=== PATIENT | female | born 1950 | race African-American/Black ===

== ENCOUNTER 2019-01-16 12:26 | Emergency (ER) | payer OTHER ==
[~2019-01-16] VITALS: Ht 152.4 cm; Wt 44.5 kg
[2019-01-16 12:58] LABS: ABSOLUTE NEUTROPHILS 5.1 thou/uL (1.4-8.2); BASOPHILS 0.9 % (0.0-2.0); HEMATOCRIT 34.8 % (37.0-47.0); HEMOGLOBIN 11.8 gm/dL (12.0-15.0); LYMPHOCYTES 30.9 % (24.0-44.0); MCH 32.1 pg (26.0-34.0); MCHC 33.9 g/dL (28.0-37.0); MCV 94.6 fL (80.0-100.0); MONOCYTES 4.4 % (1.0-8.0); PLATELET COUNT 233 thou/uL (150-400); POLYS 61.8 % (36.0-66.0); RBC 3.67 mil/uL (4.20-5.00); WBC 8.2 thou/uL (4.0-11.0)
[2019-01-16 13:01] LABS: URINE BILIRUBIN NEGATIVE (Negative); URINE BLOOD TRACE (Negative); URINE CLARITY CLOUDY; URINE COLOR YELLOW; URINE GLUCOSE-RANDOM* NEGATIVE (Negative); URINE KETONES 3+ (Negative); URINE LEUKOCYTES-REFLEX NEGATIVE (Negative); URINE NITRITE-REFLEX NEGATIVE (Negative); URINE PROTEIN (DIPSTICK) NEGATIVE (Negative); URINE UROBILINOGEN 0.2 E.U./dl (0.2-1.0)
[2019-01-16 13:17] LABS: ANION GAP 12 mmol/L (7-16); BUN 13 mg/dL (7-18); CALCIUM 10.1 mg/dL (8.5-10.1); CHLORIDE 103 mmol/L (98-107); CO2 26 mmol/L (21-32); CREATININE 0.6 mg/dL (0.6-1.0); GLUCOSE 92 mg/dL (74-106); POTASSIUM 3.5 mmol/L (3.5-5.1); SODIUM 141 mmol/L (136-145)
[2019-01-16 13:21] LABS: ALBUMIN 3.9 g/dL (3.4-5.0); LIPASE 131 U/L (73-393); SGOT 17 U/L (15-37); SGPT 19 U/L (30-65); TOTAL BILIRUBIN 0.5 mg/dL (<0.1-1.0); TOTAL PROTEIN 7.7 g/dL (6.4-8.2); TROPONIN-I <0.06 ng/mL (<0.06)
[2019-01-16 13:26] LABS: CASTS None Seen /LPF (None Seen); SQUAMOUS 4-10 Moderate /LPF (0-3); URINE WBC-REFLEX 0-5 Rare /HPF (0-5)
[2019-01-16 13:28] LABS: AMORPHOUS PHOSPHATES Many /LPF (None Seen); CRYSTALS None Seen /LPF (None Seen); URINE RBC 0-2 Rare /HPF (0-2)
[2019-01-16 15:02] VITALS: BP 119/65
--- NOTE | 2019-01-17 08:12 | EKG ---
[place] [address] [facility] [place] [address] ELECTROCARDIOGRAM REPORT Name: LUCAS ADAMES Room #: DEP ALDAIR Dumas#: [id number] ������������������ Admission: 01/16/19 ������������������ Attend Phys: Discharge: 01/16/19 ������������������ Date of : 54 Report #: [id number] ����������������������������������������������������������������� [id number] THIS REPORT FOR: //name// [facility] ED Test Date: 2019-01-16 Test Time: 12:53:41 Pat Name: LUCAS ADAMES Department: Room: Gender: F Slitter Processed Film: : 1950 Requested By: Joanne Cedeño Order Number: [id number] MD: Ben Ortiz Measurements Intervals [place]mer Rate: 69 P: 82 NH: 121 QRS: 72 QRSD: 198 T: 62 QT: 420 QTc: 450 Interpretive Statements Sinus rhythm Atrial premature complex Right ventricular conduction delay No previous ECG available for comparison Electronically Signed On 01-17-2019 8:12:02 CDT by Ben Ortiz [email or web address] ��������������������������������������������� <ELECTRONICALLY SIGNED> ���������������������������������������� By: Ben Ortiz MD, MERGED WITH [facility] ��������������������������������������������� 01/17/19 0812 1253 1253 Ben Ortiz MD, FACC /EPI
== END 2019-01-16 15:09 | disposition home or self-care (01) ==
LOC: ER 12:26
PROVIDERS: Physician Assistant
DX: K59.00 Constipation, unspecified (principal); E86.0 Dehydration; I10 Essential (primary) hypertension